=== PATIENT | male | born 1960 | race Caucasian/White ===

== ENCOUNTER 2017-04-22 05:59 | Day surgery (SDC) | payer OTHER ==
[~2017-04-22] VITALS: Ht 172.7 cm; Wt 67.3 kg
[2017-04-22] MEDS ORDERED: SODIUM CHLORIDE 0.9% 1,000 ML IV ONE ×2 (06:00→06:06)
[2017-04-22] MEDS ORDERED: LIDOCAINE HCL 4% 50 ML SOLUTION TP ONE (06:00)
[2017-04-22] MEDS ORDERED: EPINEPHrine 1:1,000 [1 MG/ML] AMP SQ ONE (06:00)
[2017-04-22] MEDS ORDERED: LIDOCAINE HCL 2% 5 ML JELLY TP ONE (06:00)
[2017-04-22] MEDS ORDERED: ALBUTEROL SULFATE 2.5 MG/0.5 ML NEB SOLUTION NEB ONE (06:00)
[2017-04-22] MEDS ORDERED: BENZOCAINE 20% 50 MCG/SPRAY 57 GM TP ONE (06:00)
[2017-04-22] MEDS ORDERED: TRAZ-147 PO (06:53)
[2017-04-22] MEDS ORDERED: OMEP20 PO (06:53)
[2017-04-22] MEDS ORDERED: FAMO20 PO (06:53)
[2017-04-22] MEDS ORDERED: QUET100T PO (06:53)
[2017-04-22] MEDS ORDERED: ZOLP10TA7 PO (06:53)
[2017-04-22] MEDS ORDERED: OXYC-42 PO (06:53)
[2017-04-22] MEDS ORDERED: MOME13HF IH (06:53)
[2017-04-22] MEDS ORDERED: MONT10TA21 PO (06:53)
[2017-04-22] MEDS ORDERED: PRAM1TAB7 PO (06:53)
[2017-04-22] MEDS ORDERED: MIDAZOLAM HCL 2 MG/2 ML VIAL ONE (07:39)
[2017-04-22] MEDS ORDERED: FentaNYL CITRATE-PF 100 MCG/2 ML VIAL ONE (07:40)
[2017-04-22] MEDS ORDERED: MethylPREDNISolone SOD SUCC 125 MG/2 ML VIAL IVP ONE (08:45)
[2017-04-22] MEDS ORDERED: MethylPREDNISolone SOD SUCC 125 MG/2 ML VIAL ONE (08:53)
[2017-04-22] MEDS ORDERED: OXYGEN THERAPY IH SCH (20:00)
== END 2017-04-22 10:35 | disposition home or self-care (01) ==
LOC: SURGERY 05:59
PROVIDERS: ATTEND Internal Medicine Critical Care Medicine
DX: J38.4 Edema of larynx (principal); B37.0 Candidal stomatitis; J45.909 Unspecified asthma, uncomplicated; F17.210 Nicotine dependence, cigarettes, uncomplicated; Z98.890 Other specified postprocedural states; Z79.899 Other long term (current) drug therapy
CPT/HCPCS: 31623; 31624; 71045; 87015; 87070; 87205; 87220; 88108; 88312; J0171; J2250; J2930; J3010; J7030